=== PATIENT | male | born 1985 | race Caucasian/White ===

== ENCOUNTER 2018-09-22 23:09 | Emergency (ER) | payer OTHER ==
[2018-09-22] MEDS ORDERED: Famotidine TAB* 20 MG PO ONE (23:33)
[2018-09-22] MEDS ORDERED: predniSONE TAB* 20 MG PO ONE (23:33)
[2018-09-22] MEDS ORDERED: EPINEPHRINE 1 MG/ML 1 ML VIAL IM ONE (23:33)
--- NOTE | 2018-09-22 23:37 | ED ---
Allergic Reaction/Systemic - HPI Summary HPI Summary: Pt is a 33 y/o M presenting to the ED with a chief complaint of allergic reaction onset around 1900. The pt had a salad today at around 1200 and another for dinner including spinach, blackberries, blueberries, and raspberry vinaigrette. Pt reports also eating peanuts and cheese puffs. The pt reports feeling hot followed by onset of pruritic skin, partial sob, cough, nausea, swollen lips, and abd pain. Pt denies diarrhea, vomiting, or a hx of anaphylaxis. He took zach [employer]. - History of Current Complaint Chief Complaint: EDAllergicReaction Time Seen by Provider: 09/22/18 23:26 Hx Obtained From: Patient Onset/Duration: Sudden Onset, Started hours ago, Still Present Timing: Constant, Lasting Hours Severity Initially: Mild Severity Currently: Moderate Pain Intensity: 5 Pain Scale Used: 0-10 Numeric Location: Diffuse Character: Swelling - lips, Pruritus - diffuse, Hives - diffuse Aggravating Factor(s): Nothing Alleviating Factor(s): Nothing Associated Signs And Symptoms: Positive: Abdominal Pain, Cough Wheezing, Difficulty Breathing, Nausea, Rash. Negative: Vomiting - Allergies/Home Medications Allergies/Adverse Reactions: Allergies Allergy/AdvReac Type Severity Reaction Status Date / Time No Known Allergies Allergy Verified 09/22/18 23:15 PMH/Surg Hx/FS Hx/Imm Hx Previously Healthy: Yes Endocrine/Hematology History: Denies: Hx Diabetes Cardiovascular History: Denies: Hx Hypertension Infectious Disease History: No Infectious Disease History: Denies: Traveled Outside the [place] in Last 30 Days - Family History Known Family History: Negative: Renal Disease Review of Systems Negative: Fever Positive: Cough Positive: Abdominal Pain, Nausea. Negative: Vomiting, Diarrhea Positive: Other - pruritic All Other Systems Reviewed And Are Negative: Yes Physical Exam - Summary Physical Exam Summary: Appearance: Well-appearing, Well-nourished, lying in bed comfortably Skin: scattered urticarial on lower abd and upper extremities Eyes: sclera anicteric, no conjunctival pallor ENT: mucous membranes moist, mild edema of lips, no lingual or pharyngeal edema , voice is normal with no hoarseness or stridor. Neck: Supple, nontender Respiratory: Clear to auscultation, no signs of respiratory distress Cardiovascular: Normal S1, S2. No murmurs. Normal distal pulses in tibial and radial bilaterally. Abdomen: Soft, nontender, normal active bowel sounds present Musculoskeletal: Normal, Strength/ROM Intact Neurological: A&Ox3, awake and alert, mentation is normal, speech is fluent and appropriate Psychiatric: affect is normal, does not appear anxious or depressed Triage Information Reviewed: Yes Vital Signs On Initial Exam: Initial Vitals Temp Pulse Resp BP Pulse Ox 98.4 F 72 16 127/76 95 09/22/18 23:10 09/22/18 23:10 09/22/18 23:10 09/22/18 23:10 09/22/18 23:10 Vital Signs Reviewed: Yes Diagnostics - Vital Signs Vital Signs Temp Pulse Resp BP Pulse Ox 09/22/18 23:10 98.4 F 72 16 127/76 95 - Laboratory Lab Statement: Any lab studies that have been ordered have been reviewed, and results considered in the medical decision making process. Re-Evaluation - Re-Evaluation 1st re-eval Re-Evaluation Time: 01:04 Change: Improved Comment: Rash is resolved, pt is stable and will be sent home. Allergic Reaction Course/Dx - Diagnoses Provider Diagnoses: Anaphylaxis Discharge - Sign-Out/Discharge Documenting (check all that apply): Patient Departure Patient Received Moderate/Deep Sedation with Procedure: No - Discharge Plan Condition: Improved Disposition: HOME Prescriptions: EPINEPHrine [Epipen 2-[place]] 0.3 mg IM SEE INSTRUCTIONS PRN #1 inj PRN Reason: Sob/Wheezing predniSONE TAB* [Deltasone 20 MG TAB*] 40 mg PO DAILY 5 Days #10 tab Patient Education Materials: Anaphylaxis (ED) Referrals: [facility] [Outside] [facility] [Outside] Additional Instructions: I would recommend that you make an appointment with an allergy or acls specialist to be tested for allergies, as it is not clear what precipitated your reaction. Testing may identify a casuative substance that you can then avoid. - Billing Disposition and Condition Condition: IMPROVED Disposition: Home - Attestation Statements Document Initiated by Scribe: Yes Documenting Scribe: Aida Gold Provider For Whom [facility] is Documenting (Include Credential): Mario Shane MD. Scribe Attestation: Aida Storey, scribed for Mario Shane MD. on 09/23/18 at 0240. Scribe Documentation Reviewed: Yes Provider Attestation: The documentation as recorded by the anishibe, Aida Gold accurately reflects the service I personally performed and the decisions made by me, Mario Shane MD. Status of [facility] Document: Viewed
== END 2018-09-23 01:13 | disposition home or self-care (01) ==
LOC: ED 23:09
DX: T78.00XA Anaphylactic reaction due to unspecified food, initial encounter (principal); L29.9 Pruritus, unspecified; L50.0 Allergic urticaria; R11.0 Nausea; R10.9 Unspecified abdominal pain
CPT/HCPCS: 96372; 99282; A9270-GY; J7512